=== PATIENT | male | born 1955 | race Caucasian/White ===

== ENCOUNTER 2016-12-08 11:24 | Day surgery (SDC) | payer OTHER, MEDICARE ==
[~2016-12-08] VITALS: Ht 182.9 cm; Wt 102.3 kg
[~2016-12-08 11:24] MED LIST: ALENDRONATE SOD70 MG PO; AMBIEN10 MG PO; AZULFIDINE500 MG; AZULFIDINE500 MG PO; CALCIUM 500 + D1 TAB PO; CELEXA10 MG PO; ENBREL25 MG/0.5 SQ; FOLIC ACID1 MG PO; LOMOTIL TABLET1 TAB PO; METHOTREXATE2.5 MG PO; METOPROLOL TART50 MG PO; MULTIPLE VITAMI1 TA1 PO; NEXIUM40 MG PO; NORVASC10 MG PO; OXYCONTIN10 MG PO; PHENERGAN25 M1 PO; PLAQUENIL200 MG PO; PREDNISONE2.5 MG PO; ZANAFLEX4 MG PO; ZESTRIL40 MG PO
[2016-12-08 12:14] LABS: BASOPHILS 0.1 % (0.0-2.0); EOSINOPHILS 0.1 % (0-7); HEMATOCRIT 42.7 % (42.0-54.0); HEMOGLOBIN 13.5 g/dL (13.5-17.5); IMMATURE GRANULOCYTES 0.3 % (0-5); LYMPHOCYTES 10.4 % (15-50); MCH 28.8 pg (26.0-34.0); MCHC 31.6 g/dL (31.0-37.0); MCV 91.2 fL (80.0-100.0); MEAN PLATELET VOLUME 9.5 fL (7.4-10.4); MONOCYTES 5.7 % (2-11); NEUTROPHILS 83.4 % (40-80); PLATELET COUNT 227 10x3/uL (130-400); RBC 4.68 10x6/uL (4.20-6.10); RDW 14.9 % (11.5-14.5); WBC 14.2 10x3/uL (4.8-10.8)
[2016-12-08 12:29] LABS: CALC OSMOLALITY 276 mosm/kg (275-300); CALCIUM 10.4 mg/dL (8.5-10.1); CARBON DIOXIDE 29.6 mmol/L (21.0-32.0); CHLORIDE - SERUM 100 mmol/L (98-107); GLUCOSE 107 mg/dL (74-106); POTASSIUM - SERUM 4.3 mmol/L (3.5-5.1); SODIUM 139 mmol/L (136-145); UREA NITROGEN 11 mg/dL (7-18); eGFR NON AFRICAN AMERICAN 80 mL/min (90-120)
[2016-12-08 12:43] VITALS: BP 127/76; Ht 182.9 cm; Wt 102.3 kg
--- NOTE | 2016-12-08 15:51 | NUR ---
1530--IV DC'D. LAURITA BUNDY [id number]--DISCHARGE INSTRUCTIONS GIVEN, PT VERBALIZES UNDERSTANDING. PT OFF UNIT VIA WC. LAURITA BUNDY
--- NOTE | 2016-12-12 20:46 | OP ---
PATIENT NAME: JEREMIAS COMBS MEDICAL RECORD: [id number] :51 LOCATION:[facility] ADMISSION DATE: SURGEON: CARLOS ENRIQUE SKAGGS MD DATE OF OPERATION: 12/08/2016 PROCEDURE: Colonoscopy with biopsy and polypectomy. REFERRING PHYSICIAN: Dr. Tyson Cabrera. INDICATIONS: Mr. Combs is a very pleasant 61-year-old gentleman with a history of rheumatoid arthritis, who had a lower gastrointestinal bleed secondary to colitis in May 2016. On 06/23/2016, he had a CTA of the abdomen and pelvis that showed near complete resolution of the colitis with no other intraabdominal pathology noted. His last colonoscopy was with Dr. Cabrera approximately 5-6 years ago. He presents for outpatient colonoscopy. PREMEDICATIONS: Total IV anesthesia (ASA 3, rheumatoid arthritis) propofol 350, Ancef 1 gram IV, piggyback IV. PROCEDURE AND FINDINGS: After receiving informed consent, Mr. Combs was placed in left lateral decubitus position and sedated as per anesthesia. After achieving an adequate level of sedation, a digital rectal exam was performed that showed no external hemorrhoidal tags, fissures or fistulas, normal sphincter tone, no palpable rectal masses. The colonoscope was introduced per rectally and advanced to the cecum without difficulty. The cecum, IC valve, and appendiceal orifice were identified. Within the cecum was a 0.25 cm sessile polyp removed with biopsy forcep technique. Towards the distal edge of the cecum was a 0.75-1 cm size, sessile polyp removed with hot biopsy forcep technique. At the lip of the cecum adjacent to the IC valve was a 1-1.5 cm sessile polyp that was removed with hot biopsy forcep technique. At the hepatic flexure were 2 polyps, one diminutive measuring 0.25 cm in size and the other measuring 0.5 cm in size, sessile, removed with biopsy forcep technique. In the transverse colon were 3 polyps measuring 0.3-0.75 cm in size, removed with hot biopsy forcep technique. In the descending colon, there were 2 polyps, one measuring 0.3 cm in size, removed with biopsy forceps technique and the other measuring a cm in size, removed with biopsy forcep technique. There were few scattered diverticula seen in the sigmoid colon. There was a sigmoid polyp measuring 0.5-0.75 cm in size, sessile, removed with biopsy forceps technique. There was very minimal patchy erythema in the descending and sigmoid colon and biopsies were obtained to rule out microscopic colitis. Retroflexion in rectum showed mild internal hemorrhoids. A fair prep was present. Mr. Combs tolerated the procedure well, no immediate complications. Withdrawal time was 18 minutes. ASSESSMENT: 1. Sigmoid polyp status post polypectomy. 2. Three transverse colon polyps status post polypectomy. 3. Three cecal polyp status post polypectomy. 4. Two hepatic flexure polyps, status post polypectomy. 5. Two descending colon polyp status post polypectomy. 6. Minimal nonspecific erythema involving the descending and sigmoid colon, likely prep related, with a history of colitis, status post biopsy. 7. Mild sigmoid diverticulosis coli. RECOMMENDATIONS: OPERATIVE REPORT [id number] JEREMIAS COMBS 1. Follow up histopathology. 2. Avoid aspirin, nonsteroidal anti-inflammatory drugs and FERNANDEZ-2 inhibitors 14 days post polypectomy. 3. High fiber diet. 4. Surveillance colonoscopy in 1-3 years pending nature of polyp histopathology. TRANSINT:[id number] Voice Confirmation ID: [id number] DOCUMENT ID: [id number] CARLOS ENRIQUE SKAGGS MD at 2046 CC: TYSON CABRERA MD [id number] DICTATION DATE: 12/08/161435 [employer]IST: 12/08/161937 [facility] 12/08/16 [id number] [place] [address]
== END 2016-12-08 15:50 | disposition home or self-care (01) ==
LOC: D.OPS 11:24
PROVIDERS: Anesthesiology
DX: K63.5 Polyp of colon (principal); D12.4 Benign neoplasm of descending colon; K57.30 Diverticulosis of large intestine without perforation or abscess without bleeding; K52.9 Noninfective gastroenteritis and colitis, unspecified; M06.9 Rheumatoid arthritis, unspecified